=== PATIENT | female | born 1975 | race Hispanic/Latino ===

== ENCOUNTER 2024-09-13 14:34 | Emergency (ER) | payer OTHER ==
--- OUTSIDE RECORDS SUMMARY | 2024-09-13 14:37 | XMS REPORT | Continuity of Care Document ---
Author Name Unknown Address [address] [facility] [place] [address] [facility] thconnect Address [address] [facility] [address] [place] [address] Care Team Providers Care Materials Research Engineer Name Role Phone Pcp, Patient Does Not Have A Primary Care Physic margie Maximilian Burgess OD Attending Clinician [phone] MAXIMILIAN BURGESS Attending Clinician Unavailable MAXIMILIAN BURGESS Attending Clinician Unavailable Allergies, Adverse Reactions, Alerts Allergy Name Allergy Type Status Severity Reaction(s) Onset Date Inactive Date Treating Clinician Comments Source IODINE DRUG INGREDI Active Hives 03-02 00:00: 00 [facility] Iodine Propensi ty to adverse reaction s Active Hives 03-02 00:00: 00 [facility] Social History Social Habit Start Date Stop Date Quantity Comments Source Sexual orientation U [facility] Sex assigned at 1975 00:00:00 1975 00:00:00 [facility] Smoking Status Start Date Stop Date Source Tobacco smoking consumption unknown [facility] Medications Ordered Medication Name Filled Medication Name Start Date Stop Date Current Medication? Ordering Clinician Indication Dosage Frequency Signature (SIG) Comments Components Source hydroCHLORO thiazide 12.5 mg capsule 2023-07 2-20 00:00: 00 Yes 12.5mg Take 1 capsule by mouth in the morning. [facility] amLODIPine 5 mg tablet 2023-07 00:00: 00 Yes [id number] 5mg Take 1 tablet by mouth in the morning. [facility] losartan 100 mg tablet 2023-07 00:00: 00 Yes [id number] 100mg Take 1 tablet by mouth in the morning. [facility] atorvastati n 40 mg tablet 2023-07 00:00: 00 Yes [id number] 40mg Take 1 tablet by mouth at bedtime. [facility] insulin aspart, niacinamide , (FIASP FLEXTOUCH U-100 INSULIN) 100 unit/mL (3 mL) SC injection 03-19 00:00: 00 Yes [id number] 10U inject 10 Units under the skin 2 (two) times daily before breakfast and dinner. [facility] gabapentin 300 mg capsule 03-18 00:00: 00 Yes [id number] 300mg Take 1 capsule by mouth in the morning and 1 capsule at noon and 1 capsule in the evening. [facility] insulin degludec (TRESIBA U-100 INSULIN) 100 unit/mL Soln 03-18 00:00: 00 Yes [id number] 30U inject 0.3 mL under the skin in the morning and 0.3 mL in the evening. [facility] Vital Signs Vital Name Observation Time Observation Value Comments S ource Body weight 2024-02-12 13:27:00 74.844 kg [facility] Procedures Procedure Date / Time Performed Performing Clinicia n Source FUNDUS PHOTOS - OU - BOTH EYES 2024-02-13 05:16:38 Maximilian Burgess [facility] Encounters Start Date/Time End Date/Time Encounter Type Admission Type Attending Clinicians Care Facility Care Department Encounter ID Source 2021-05-16 01:28:36 Emergency [facility] [id number] [facility] 2024-07-22 00:00:00 2024-07-23 10:49:35 Telephone Maximilian uBrgess [facility] [id number] [facility] 2024-05-23 00:00:00 2024-05-23 00:00:00 Outpatient [facility] [id number] [facility] 2024-02-14 00:00:00 2024-02-14 00:00:00 Outpatient [facility] [id number] [facility] 2024-02-12 08:00:00 2024-02-12 10:21:01 Outpatient R MAXIMILIAN BURGESS CASSIE [facility] [id number] [facility] 2024-02-12 08:00:00 2024-02-12 10:21:01 Office Visit Maximilian Burgess [facility] [employer] [facility]. [id number] [facility] Notes Date/Time Note Provider Source 2024-07-23 10:47:32 Patient states someone called her , her new insurance is [employer], which is out of network. She has been in contact with her insurance and will research an board finisher in her network. [facility] 2024-07-22 15:48:46 Called and spoke with patient. Let her know that one of our schedulers will be reaching out with soonest available with one of our retina surgeons to preop for PPV/CEIOL. Pt understood and had no further questions. Favian Hope 07/22/2024 3:49 PM [facility] 2024-07-22 15:32:20 Nandini Saxenaz is a 48 year old female Patient states she would like to schedule surgery [facility]
[2024-09-13] MEDS ORDERED: D50W 25 GM/50 ML SYRINGE IV ONE (14:52)
[2024-09-13 15:11] LABS: Absolute Eosinophils 0.4 K/uL (0-0.5); Absolute Lymphocytes (CBC) 3.1 K/uL (0.7-4.9); Absolute Monocytes 0.6 K/uL (0.1-1.3); Absolute Neutrophil 3.5 K/uL (1.8-8.0); Basophils % 0.5 % (0-1.3); Eosinophils % 5.1 % (0-4.4); Hematocrit 34.5 % (36.0-45.0); Hemoglobin 11.7 g/dL (12.0-15.0); Lymphocytes % 41.1 % (15.3-44.8); MCH 30.2 pg (27.0-35.0); MCV 88.8 fL (80-100); MPV 9.5 fL (7.6-11.3); Monocytes % 7.3 % (3.3-12.3); Nucleated Red Blood Cells % 0.1 % (0-0); Platelets 261 thou/uL (152-406); RBC Red Blood Cell Count 3.89 M/uL (3.86-4.86); Red Cell Distribution Width 13.9 % (12.1-15.2)
[2024-09-13 15:15] LABS: Specific Gravity 1.021 (1.005-1.030); Sqamous Epithelial 20-50 /HPF (None Seen); Urine Bacteria None Seen /HPF (<20); Urine Bilirubin NEGATIVE (Negative); Urine Blood Negative (Negative); Urine Clarity Extremely Turbid (Clear); Urine Color Light-Yellow (Yellow); Urine Crystals Unidentified Few /HPF (None Seen); Urine Culture Reflex Order NOT NEEDED; Urine Glucose NEGATIVE (Negative); Urine Ketones NEGATIVE (Negative); Urine Micro Reflex YN NO BILL MICROSCOPIC; Urine Mucus Slight /HPF (None Seen); Urine Nitrite NEGATIVE (Negative); Urine Protein 2+ (Negative); Urine Urobilinogen Normal (Normal); Urine WBC Clump Rare /HPF (None Seen); Urine Yeast (Budding) Trace /HPF (None Seen); Urine pH 6.5 (5.0-7.0)
[2024-09-13 15:26] LABS: Anion Gap 7.1 mEq/L (5.0-15.0); Potassium 4.1 mEq/L (3.5-5.1)
--- NOTE | 2024-09-13 16:09 | ER ---
Nurse's Notes [facility] Name: Radha Alvarez Age: 48 yrs Sex: Female : 1975 Arrival Date: 09/13/2024 Time: 14:34 Bed 17 Private MD: Diagnosis: Hypoglycemia, unspecified Presentation: 09/13 15:00 Chief complaint: Patient states: I had high blood sugar at home at 1100, it was 249 so jb4 took some insulin. I did not eat anything after and now I feel dizzy, and like I want to throw up. I also have a popped blood vessel in my left eye. Coronavirus screen: At this time, the client does not indicate any symptoms associated with coronavirus-19. Ebola Screen: No symptoms or risks identified at this time. Initial Sepsis Screen: Does the patient meet any 2 criteria? No. Patient's initial sepsis screen is negative. Does the patient have a suspected source of infection? No. Patient's initial sepsis screen is negative. Risk Assessment: Do you want to hurt yourself or someone else? Patient reports no desire to harm self or others. Onset of symptoms was September 13, 2024. Transition of care: patient was not received from another setting of care. 15:00 Method Of Arrival: Ambulatory jb4 15:00 Acuity: ISIS 2 jb4 Historical: - Allergies: 15:03 No Known Allergies; jb4 - PMHx: 15:03 DM; HTN; jb4 - PSHx: 15:03 None; jb4 - Immunization history:: Adult Immunizations up to date. - Infectious Disease History:: Denies. - Social history:: Smoking status: Patient denies any tobacco usage or history of. Screenin:04 [facility] ED Fall Risk Assessment (Adult) History of falling in the last 3 months, jb4 including since admission No falls in past 3 months (0 pts) Confusion or Disorientation No (0 pts) Intoxicated or Sedated No (0 pts) Impaired Gait No (0 pts) Mobility Assist Device Used No (0 pt) Altered Elimination No (0 pt) Score/Fall Risk Level 0 - 2 = Low Risk Oriented to surroundings, Maintained a safe environment. Abuse screen: Denies threats or abuse. Nutritional screening: No deficits noted. Tuberculosis screening: No symptoms or risk factors identified. Assessment: 15:04 General: Appears in no apparent distress. comfortable, Behavior is calm, cooperative, jb4 appropriate for age. Pain: Denies pain. Neuro: Level of Consciousness is awake, alert, obeys commands, Oriented to person, place, time, situation. Cardiovascular: Patient's skin is warm and dry. Respiratory: Airway is patent Respiratory effort is even, unlabored, Respiratory pattern is regular, symmetrical. GI: Reports nausea. : No signs and/or symptoms were reported regarding the genitourinary system. EENT: No signs and/or symptoms were reported regarding the EENT system. Derm: Skin is intact, Skin is pink, warm \T\ dry. Musculoskeletal: Circulation, motion, and sensation intact. Range of motion: intact in all extremities. 16:29 Reassessment: Patient appears in no apparent distress at this time. Patient and/or jb4 family updated on plan of care and expected duration. Pain level reassessed. Patient is alert, oriented x 3, equal unlabored respirations, skin warm/dry/pink. Patient states feeling better. Vital Signs: 15:00 BP 139 / 85; Pulse 90; Resp 16; Temp 98.2(O); Pulse Ox 99% on R/A; Weight 80.74 kg (R); jb4 Height 5 ft. 6 in. ; 16:29 BP 144 / 86; Pulse 87; Resp 16; Pulse Ox 97% on R/A; jb4 15:00 Body Mass Index 28.73 (80.74 kg, 167.64 cm) jb4 ED Course: 14:38 Patient arrived in ED. ts1 14:39 Sylvester Marie MD is Attending Physician. ec2 15:00 Marlon Gonzalez, Y[place] is Primary Nurse. jb4 15:00 BMP Sent. kb4 15:00 Initial lab(s) drawn, by me. Inserted saline lock: 20 gauge in right antecubital area, kb4 using aseptic technique. Blood collected. Flushed with 10 mL NS. 15:03 Triage completed. jb4 15:03 Arm band placed on right wrist. jb4 15:04 No provider procedures requiring assistance completed. jb4 15:04 Patient has correct armband on for positive identification. Bed in low position. Call jb4 light in reach. Side rails up X 1. Provided Education on: plan of care. 15:29 Notified ED physician of a critical lab result(s). glucose 51. ss 16:29 IV discontinued, intact, bleeding controlled, No redness/swelling at site. Pressure jb4 dressing applied. Administered Medications: 15:00 Drug: D50W IVP 50 ml IVP once; (1 amp) Route: IVP; Site: right antecubital; jb4 16:00 Follow up: Response: No adverse reaction; Marked relief of symptoms; Blood sugar is jb4 elevated Medication: 15:04 VIS not applicable for this client. jb4 Outcome: 16:08 Discharge ordered by . ec2 16:29 Discharged to home ambulatory, jb4 16:29 Condition: stable 16:29 Discharge instructions given to patient, Instructed on discharge instructions, follow up and referral plans. Demonstrated understanding of instructions, follow-up care, 16:30 Patient left the ED. jb4 Signatures: Malina Lynn RN RN ss Marlon Gonzalez RN RN jb4 Evette Vargas PAS PAS ts1 Sylvester Marie MD MD ec2 Genie Olmstead kb4
--- NOTE | 2024-09-13 16:09 | EDPHYS ---
Physician Documentation [facility] Name: Radha Alvarez Age: 48 yrs Sex: Female : 1975 Arrival Date: 09/13/2024 Time: 14:34 Bed 17 Private MD: ED Physician Sylvester Marie HPI: 09/13 15:02 This 48 yrs old Female presents to ER via Unassigned with complaints of High ec2 Blood Pressure, Low Blood Sugar. 15:02 Patient arrives today for evaluation of sugar issues. Reports that she had elevated ec2 blood sugars, took her insulin and subsequently feels lightheaded. Patient reports she did not eat after taking her insulin. Initial blood sugars in the 40s. . Historical: - Allergies: 15:03 No Known Allergies; jb4 - PMHx: 15:03 DM; HTN; jb4 - PSHx: 15:03 None; jb4 - Immunization history:: Adult Immunizations up to date. - Infectious Disease History:: Denies. - Social history:: Smoking status: Patient denies any tobacco usage or history of. ROS: 15:02 Constitutional: as per hpi ec2 Exam: 15:02 Constitutional: GEN: NAD Head: atraumatic Eyes: EOMI Ears: External ears are ec2 normal. CV: regular rate LUNGS: no respiratory distress ABD: non-distended SKIN: no evidence of rashes MSK: no evidence of trauma Vital Signs: 15:00 BP 139 / 85; Pulse 90; Resp 16; Temp 98.2(O); Pulse Ox 99% on R/A; Weight 80.74 kg (R); jb4 Height 5 ft. 6 in. ; 16:29 BP 144 / 86; Pulse 87; Resp 16; Pulse Ox 97% on R/A; jb4 15:00 Body Mass Index 28.73 (80.74 kg, 167.64 cm) jb4 MDM: 14:45 Medical Screening Exam initiated ec2 15:02 Data reviewed: vital signs, nurses notes. ED course: Patient arrives today for ec2 evaluation of sugar issues. Examination yields nontoxic and appears otherwise in no acute distress. Will obtain basic lab work, initial blood sugars in the 40s, will give the patient dextrose and p.o. challenge the patient. Suspect hypoglycemia secondary to medication administration. Will also evaluate for renal dysfunction, electrolyte disturbances, urinary tract infection.. 16:07 ED course: Repeat blood sugar in the 150s, on reassessment patient is awake and alert ec2 and has no other concerns, patient is tolerating p.o. without issue. Will discharge home have patient follow-up PCP. Return precautions given.. 09/13 14:53 Order name: CBC with Diff; Complete Time: 15:28 ec2 09/13 14:53 Order name: BMP; Complete Time: 15:35 ec2 09/13 14:53 Order name: UAM; Complete Time: 15:28 ec2 09/13 15:11 Order name: Glucose, Ancillary Testing; Complete Time: 15:28 EDMS 09/13 15:46 Order name: Glucose, Ancillary Testing; Complete Time: 16:07 EDMS 09/13 14:53 Order name: IV; Complete Time: 15:00 ec2 09/13 14:53 Order name: PO challenge; Complete Time: 15:03 ec2 09/13 14:53 Order name: Accucheck; Complete Time: 15:00 ec2 09/13 15:28 Order name: Accucheck; Complete Time: 15:38 ec2 Administered Medications: 15:00 Drug: D50W IVP 50 ml IVP once; (1 amp) Route: IVP; Site: right antecubital; jb4 16:00 Follow up: Response: No adverse reaction; Marked relief of symptoms; Blood sugar is jb4 elevated Disposition Summary: 09/13/24 16:08 Discharge Ordered Condition: Stable ec2 Diagnosis - Hypoglycemia, unspecified ec2 Followup: ec2 - With: Private Physician - When: - Reason: Re-evaluation by your physician Discharge Instructions: - Discharge Summary Sheet ec2 - Hypoglycemia ec2 Forms: - Medication Reconciliation Form ec2 - Antibiotic Education ec2 - Prescription Opioid Use ec2 - Patient Portal Instructions ec2 - Leadership Thank You Letter ec2 Signatures: Dispatcher [employer] Marlon Carbajal RN RN jb4 Sylvester Marie MD MD ec2
[2024-09-13 16:56] VITALS: TEMP 98.2
[2024-09-13 16:58] VITALS: BP 144/86; O2SAT 97
== END 2024-09-13 16:30 | disposition home or self-care (01) ==
LOC: ER 14:34
DX: E11.649 Type 2 diabetes mellitus with hypoglycemia without coma (principal); I10 Essential (primary) hypertension
CPT/HCPCS: 36415; 80048; 81001; 82947; 85025; 96374; 99284